=== PATIENT | female | born 1950 | race Caucasian/White ===

== ENCOUNTER → 2018-06-13 | Outpatient (REF) | payer MEDICARE ==
[2018-06-13 19:01] LABS: FOLATE > 24.0 NG/ML; VITAMIN B12 LEVEL 781 PG/ML
[2018-06-17 11:38] LABS: VITAMIN E(ALPHA TOCOPHEROL) 15.2 mg/L (9.0-29.0); VITAMIN E(GAMMA TOCOPHEROL) 1.3 mg/L (0.5-4.9)
[2018-06-17 20:23] LABS: CERULOPLASMIN 21.8 mg/dL (19.0-39.0); VITAMIN B1 LEVEL WHOLE BLOOD 140.4 nmol/L (66.5-200.0); VITAMIN B6,PYRIDOXAL PHOSPHATE 56.3 ug/L (2.0-32.8)
== END ==
LOC: M LABNEURO 16:54
PROVIDERS: ATTEND Psychiatry & Neurology Neurology
DX: E03.9 Hypothyroidism, unspecified (principal); E51.9 Thiamine deficiency, unspecified; E53.8 Deficiency of other specified B group vitamins; E61.0 Copper deficiency

== ENCOUNTER → 2021-10-01 | Outpatient (REF) | payer MEDICARE ==
[2021-10-01 17:28] LABS: AMORPHOUS SEDIMENT SMALL (NEGATIVE); APPEARANCE, URINE CLOUDY (CLEAR); BACTERIA, URINE AUTO NEGATIVE (NEGATIVE); BILIRUBIN, URINE AUTO NEGATIVE (NEGATIVE); BLOOD, URINE BLOOD NEGATIVE (NEGATIVE); CALCIUM OXALATE CRYSTALS SMALL; COLOR, URINE YELLOW (YELLOW); GLUCOSE, URINE (UA) AUTO NEGATIVE (NEGATIVE); KETONE, URINE AUTO NEGATIVE (NEGATIVE); LEUKOCYTE ESTERASE, URINE AUTO NEGATIVE (NEGATIVE); MUCUS, URINE SMALL (NEGATIVE); NITRITE, URINE AUTO NEGATIVE (NEGATIVE); PROTEIN, URINE AUTO NEGATIVE (NEGATIVE); RBC, URINE AUTO 15 /HPF (0-3); SPECIFIC GRAVITY URINE AUTO 1.018 (1.002-1.035); SQUAMOUS EPITHELIAL CELL UR AU 1 /HPF (0-6); UROBILINOGEN, URINE AUTO 0.2 mg/dL (0.0-2.0); WBC, URINE AUTO 0 /HPF (0-3)
== END ==
LOC: M SMT 16:43
PROVIDERS: ATTEND Physician Assistant
DX: N39.0 Urinary tract infection, site not specified (principal)

== ENCOUNTER → 2022-04-02 | Outpatient (REF) | payer MEDICARE ==
[2022-04-02 19:38] LABS: APPEARANCE, URINE MANUAL CLEAR (CLEAR); COLOR, URINE MANUAL YELLOW (YELLOW)
[2022-04-02 19:41] LABS: BILIRUBIN, URINE MANUAL NEGATIVE (NEGATIVE); BLOOD URINE MANUAL POSITIVE (NEGATIVE); GLUCOSE, URINE (UA) MANUAL NEGATIVE (NEGATIVE); KETONE, URINE MANUAL NEGATIVE (NEGATIVE); LEUKOCYTE ESTERASE, URINE MAN NEGATIVE (NEGATIVE); NITRITE, URINE MANUAL NEGATIVE (NEGATIVE); PROTEIN, URINE MANUAL TRACE mg/dL (NEGATIVE); UROBILINOGEN, URINE MANUAL NORMAL (NORMAL)
[2022-04-02 20:05] LABS: BACTERIA, URINE SMALL AMOUNT; CALCIUM OXALATE CRYSTALS,URINE LARGE AMOUNT /hpf; HYALINE CAST, URINE NONE SEEN /lpf (0-1); MUCUS, URINE LARGE AMOUNT (NEGATIVE); SQUAMOUS EPITHELIAL CELL URINE SMALL AMOUNT /hpf (SMALL AMT)
== END ==
LOC: M SMT 16:43
PROVIDERS: ATTEND Physician Assistant
DX: N39.0 Urinary tract infection, site not specified (principal)